=== PATIENT | female | born 1985 | race Asian ===

== ENCOUNTER 2017-02-07 09:45 | Emergency (ER) | payer BC ==
[~2017-02-07] VITALS: Ht 157.5 cm; Wt 66.0 kg
[2017-02-07 09:51] VITALS: Ht 157.5 cm; Wt 66.0 kg
[2017-02-07] MEDS ORDERED: ONDANSETRON (ODT) 4 MG TAB ODT STA (10:43)
[2017-02-07] MEDS ORDERED: ACETAMINOPHEN 325 MG TAB PO ONE (11:00)
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
[2017-02-07] MEDS ORDERED: ACET500C5 PO (12:03)
[2017-02-07] MEDS ORDERED: ONDA8TAB14 PO (12:03)
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
== END 2017-02-07 12:25 | disposition home or self-care (01) ==
LOC: FTE 09:45
DX: S06.0X0A Concussion without loss of consciousness, initial encounter (principal); V89.2XXA Person injured in unspecified motor-vehicle accident, traffic, initial encounter
CPT/HCPCS: 70450; 72125; 99285; Z7610